=== PATIENT | female | born 1995 | race Two or more races ===

== ENCOUNTER 2017-04-06 22:14 | Emergency (ER) | payer BC, OTHER ==
[~2017-04-06 22:14] MED LIST: CIPRO500 M2 PO; LEXAPRO20 M2 PO; NORCO 5-325 TA1 EACH PO; NUVARING VAGIN1 EACH VG; ZOFRAN4 M2 PO
[2017-04-06] MEDS ORDERED: BENTYL10 M1 PO ×2 (22:24→23:52)
[2017-04-06 23:27] LABS: URINE BILIRUBIN NEGATIVE (NEG); URINE BLOOD MODERATE (NEG); URINE GLUCOSE (UA) NEGATIVE (NEG); URINE KETONE NEGATIVE (NEG); URINE LEUKOCYTE ESTERASE NEGATIVE (NEG); URINE NITRITE NEGATIVE (NEG); URINE PROTEIN NEGATIVE (NEG)
[2017-04-06 23:31] LABS: URINE APPEARANCE CLEAR; URINE COLOR YELLOW
[2017-04-06 23:34] LABS: BASO % 0.2 % (0-2); EOS % 0.7 % (0-7); EOSINOPHIL ABSOLUTE COUNT 0.1 tho/cmm (0.0-0.7); HCT-HEMATOCRIT 40.7 % (34.0-49.0); HGB-HEMOGLOBIN 13.6 gm/dl (12.0-15.5); IMMATURE GRANULOCYTES ABSOLUTE 0.01 tho/cmm (0-0.03); IMMATURE GRANULOCYTES PERCENT 0.1 % (0-0.3); LYMPH % 49.3 % (20-45); MCH (MEAN CORPUSCULAR HGB) 30.3 pg (28.0-32.0); MCHC MEAN CORPUSCULAR HGB CONC 33.4 % (32.0-36.0); MCV (MEAN CELL VOLUME) 90.6 fl (82.0-96.0); MONO % 4.9 % (0-12); MONOCYTE ABSOLUTE COUNT 0.4 tho/cmm (0.0-1.2); NEUTROPHIL ABSOLUTE COUNT 3.7 tho/cmm (1.6-8.0); NEUTROPHIL-AUTOMATED 3.7 tho/cmm (1.6-8.0); NEUTROPHILS % 44.8 % (40-80); PLATELET COUNT 254 tho/cmm (150-450); RED BLOOD COUNT 4.49 mil/cmm (4.00-5.20); RED CELL DISTRIBUTION WIDTH 11.9 % (12.4-16.4); WHITE BLOOD COUNT 8.2 tho/cmm (4.0-10.0)
[2017-04-06 23:41] LABS: URINE BACTERIA 1+; URINE EPITHELIAL CELLS RARE /[HPF] (0-10); URINE MUCUS 2+; URINE WBC 0-1 /[HPF] (0-5)
[2017-04-06 23:42] LABS: PREGNANCY-SERUM NEGATIVE (NEGATIVE)
[2017-04-06 23:46] LABS: ALB/GLOB RATIO 0.8 (0.8-2.0); ALBUMIN 3.5 g/dl (3.5-5.0); ALKALINE PHOSPHATASE 50 U/L (33-138); ALT/SGPT 17 U/L (12-78); ANION GAP 12 mmol/L (0-20); AST/SGOT 20 U/L (10-40); BILIRUBIN,TOTAL 0.2 mg/dl (0-1.5); BLOOD UREA NITROGEN 15 mg/dl (6-24); CALCIUM 8.6 mg/dl (8.5-10.5); CARBON DIOXIDE-VENOUS 27 mmol/L (22-32); CHLORIDE 105 mmol/l (96-110); CREATININE 0.87 mg/dl (0.50-1.10); GLUCOSE 86 mg/dL (70-110); LIPASE 199 U/L (73-393); POTASSIUM 3.8 mmol/L (3.7-5.1); SODIUM 140 mmol/L (135-145); eGFR VALUE FOR BLACK >90 mL/Min
[2017-04-06] MEDS ORDERED: LOMOTIL 2.5-0.1 EACH PO (23:52)
[2017-07-26] MEDS ORDERED: NUVARING VAGIN1 EACH VG (02:29)
[2017-07-26] MEDS ORDERED: NORCO 5-325 TA1 EACH PO (03:10)
== END 2017-04-07 00:14 ==
LOC: EDMED 22:14
PROVIDERS: Emergency Medicine
DX: E86.0 Dehydration (principal); R11.2 Nausea with vomiting, unspecified; R19.7 Diarrhea, unspecified
CPT/HCPCS: J2405; J7030